=== PATIENT | female | born 1995 | race Caucasian/White ===

== ENCOUNTER 2017-10-19 21:05 | Observation (INO) ==
[2017-10-19 23:06] LABS: Basophils # 0.1 10*3/uL (0.0-0.2); Basophils % 0.5 % (0.0-0.8); Eosinophils # 0.2 10*3/uL (0.0-0.87); Eosinophils % 2.1 % (0.00-10.9); Hematocrit 40.3 VOL% (35.7-47.0); Hemoglobin 14.3 GM/DL (12.0-16.0); Immature Granulocytes % 0.3 %; Immature Granulocytes Absolute 0.03 #; Lymphocytes # 2.7 10*3/uL (1.4-4.0); Mean Corpuscular HGB Conc 35.5 GM/DL (32-36); Mean Corpuscular Hemoglobin 31 PG (27-34); Mean Corpuscular Volume 87.8 FL (87-102); Mean Platelet Volume 11.7 FL (9.6-12.0); Monocytes # 0.7 10*3/uL (0.11-0.8); Monocytes % 7.4 % (1.7-12.7); Neutrophils # 6.2 10*3/uL (1.4-7.4); Neutrophils % 62.7 % (38.7-73.9); Platelet Count 215 T/CUMM (130-400); Red Blood Count 4.59 MC/CUMM (3.8-5.5); Red Cell Distribution Width 12.4 % (9.3-17.3); White Blood Count 9.9 T/CUMM (4-12)
[2017-10-19 23:53] LABS: Alanine Aminotransferase 22 U/L (13-56); Albumin 3.6 G/DL (3.4-5.0); Alkaline Phosphatase 100 U/L (45-117); Aspartate Amino Transferase 14 U/L (0-37); Bilirubin,Total < 0.39 MG/DL (0.2-1.0); Blood Urea Nitrogen 9 MG/DL (7-18); Glucose 82 MG/DL (74-106); Osmolality,Calculated 276.4 MOS/KG (273-304); Sodium 140 MMOL/L (136-145); Total Protein 7.2 G/DL (6.4-8.3)
[2017-10-20 00:03] LABS: Troponin I Only < 0.015 NG/ML (0.00-0.045)
[2017-10-20] MEDS ORDERED: ZALEPLON 5 MG CAPSULE PO PRN (02:07)
[2017-10-20] MEDS ORDERED: ACETAMINOPHEN 325 MG TABLET PO PRN (02:07)
[2017-10-20] MEDS ORDERED: ONDANSETRON 4 MG/2 ML VIAL IV PRN (02:07)
[2017-10-20] MEDS: PANTOPRAZOLE 40 MG TABLET PO SCH (08:52)
[2017-10-20] MEDS ORDERED: CARVEDILOL 3.125 MG TABLET PO SCH (09:00)
[2017-10-20 10:28] LABS: Barbiturates Screen,Urine Negative (Negative); Benzodiazepines Screen,Urine Negative (Negative); Cannabinoid Screen,Urine Negative (Negative); Opiate Screen,Urine Negative (Negative); Phencyclidine Screen,Urine Negative (Negative)
[2017-10-21] MEDS ORDERED: DIAZEPAM 5 MG TABLET PO ONE (06:00)
[2017-10-21] MEDS ORDERED: TISSUE ADHESIVE 1 EACH APPLICATOR TOP ONE (06:09)
[2017-10-21] MEDS ORDERED: LIDOCAINE 1%/EPI INJ 20 ML VIAL ONE (06:09)
[2017-10-21] MEDS ORDERED: fentaNYL 100 MCG/2 ML VIAL ONE (06:53)
[2017-10-21] MEDS ORDERED: fentaNYL 100 MCG/2 ML VIAL IV ONE (07:18)
[2017-10-21] MEDS ORDERED: LIDOCAINE 1%/EPI INJ 20 ML VIAL INFILTRAT ONE (07:24)
[2017-10-21] MEDS: PANTOPRAZOLE 40 MG TABLET PO SCH (09:20)
[2017-10-21] MEDS ORDERED: diphenhydrAMINE 2% CREAM 28 GM TUBE TOP PRN (09:34)
[2017-10-21 12:00] VITALS: BP 95/63
== END 2017-10-21 13:05 | disposition home or self-care (01) ==
LOC: N.ED 21:05 → N.EDINP 21:05 → N.2W 10-20 08:44 → N.TELEN 10-20 14:44
PROVIDERS: ADMIT Internal Medicine; ATTEND Internal Medicine

== ENCOUNTER 2021-06-25 12:46 | Inpatient (IN) ==
[2021-06-25] MEDS ORDERED: SODIUM CHLORIDE 0.9% 1,000 ML IV STA (14:16)
[2021-06-25 15:00] LABS: Basophils % 0.3 % (0.0-0.8); Eosinophils % 0.2 % (0.00-10.9); Hematocrit 37.9 VOL% (35.7-47.0); Hemoglobin 12.7 GM/DL (12.0-16.0); Immature Granulocytes % 0.3 %; Immature Granulocytes Absolute 0.03 #; Lymphocytes # 2.3 10*3/uL (1.4-4.0); Lymphocytes % 25.4 % (21.3-54.2); Mean Corpuscular HGB Conc 33.5 GM/DL (32-36); Mean Corpuscular Volume 89.4 FL (87-102); Mean Platelet Volume 10.7 FL (9.6-12.0); Monocytes % 6.4 % (1.7-12.7); Neutrophils % 67.4 % (38.7-73.9); Platelet Count 205 T/CUMM (130-400); Red Blood Count 4.24 MC/CUMM (3.8-5.5); Red Cell Distribution Width 12.1 % (9.3-17.3); White Blood Count 9.2 T/CUMM (4-12)
[2021-06-25 15:35] LABS: Albumin 3.6 G/DL (3.4-5.0); Bilirubin,Total 0.4 MG/DL (0.20-1.00); Calcium 8.9 MG/DL (8.5-10.1); Osmolality,Calculated 268.8 MOS/KG (273-304); Potassium 3.5 MMOL/L (3.5-5.1); Total Protein 7.5 G/DL (6.4-8.2)
[2021-06-25] MEDS ORDERED: VANCOMYCIN INJ 1,500 MG in SODIUM CHLORIDE 0.9% 500 ML IV STA (16:50)
[2021-06-25] MEDS ORDERED: GLUCAGON 1 MG VIAL IM PRN (16:50)
[2021-06-25] MEDS ORDERED: ONDANSETRON 4 MG/2 ML VIAL IV PRN (16:50)
[2021-06-25] MEDS ORDERED: LACTATED RINGERS 2,000 ML IV ONE (16:54)
[2021-06-25] MEDS ORDERED: LACTATED RINGERS 1,000 ML IV ONE (16:55)
[2021-06-25] MEDS ORDERED: DEXTROSE 10% 25 GM/250 ML BAG IV PRN (17:07)
[2021-06-25 17:49] LABS: Thyroid Stimulating Hormone 0.37 uIU/ml (0.358-3.74)
[2021-06-25] MEDS: LACTATED RINGERS 1,000 ML IV SCH (18:00)
[2021-06-25] MEDS: MORPHINE 2 MG/1 ML SYRINGE IV PRN (19:05)
[2021-06-26] MEDS: LACTATED RINGERS 1,000 ML IV SCH ×2 (00:53→10:56)
[2021-06-26] MEDS: MORPHINE 2 MG/1 ML SYRINGE IV PRN ×2 (04:33→13:59)
[2021-06-26 05:12] LABS: Basophils % 0.4 % (0.0-0.8); Eosinophils # 0.1 10*3/uL (0.0-0.87); Hematocrit 31.8 VOL% (35.7-47.0); Hemoglobin 10.7 GM/DL (12.0-16.0); Immature Granulocytes % 0.4 %; Immature Granulocytes Absolute 0.03 #; Lymphocytes # 2.9 10*3/uL (1.4-4.0); Lymphocytes % 35.5 % (21.3-54.2); Mean Corpuscular HGB Conc 33.6 GM/DL (32-36); Mean Corpuscular Volume 90.9 FL (87-102); Mean Platelet Volume 11.3 FL (9.6-12.0); Neutrophils % 55.7 % (38.7-73.9); Platelet Count 193 T/CUMM (130-400); Red Cell Distribution Width 12.1 % (9.3-17.3); White Blood Count 8.3 T/CUMM (4-12)
[2021-06-26 05:42] LABS: Calcium 8.6 MG/DL (8.5-10.1); Osmolality,Calculated 272.5 MOS/KG (273-304); Potassium 3.9 MMOL/L (3.5-5.1)
[2021-06-26] MEDS ORDERED: VANCOMYCIN INJ 1,500 MG in SODIUM CHLORIDE 0.9% 500 ML IV SCH (06:00)
[2021-06-26] MEDS ORDERED: BUPIVACAINE 0.5% 50 ML VIAL ONE (11:13)
[2021-06-26] MEDS ORDERED: LIDOCAINE 1%/EPI INJ 20 ML VIAL ONE (11:13)
[2021-06-26] MEDS ORDERED: LIDOCAINE 2% 5 ML VIAL ONE (11:26)
[2021-06-26] MEDS ORDERED: MIDAZOLAM 2 MG/2 ML VIAL ONE (11:26)
[2021-06-26] MEDS ORDERED: fentaNYL 100 MCG/2 ML VIAL ONE (11:26)
[2021-06-26] MEDS ORDERED: propofoL 200 MG/20 ML VIAL IV ONE (11:26)
[2021-06-26] MEDS ORDERED: GLYCOPYRROLATE 0.4 MG/2 ML VIAL ONE (12:16)
[2021-06-26] MEDS ORDERED: SEVOFLURANE 1 UNIT/15 MINUTE INH ONE (12:16)
[2021-06-26] MEDS ORDERED: HYDROmorphone 2 MG/1 ML VIAL ONE (12:29)
[2021-06-26] MEDS: HYDROmorphone 2 MG/1 ML VIAL IV PRN ×2 (12:30→12:40)
[2021-06-26] MEDS ORDERED: ONDANSETRON 4 MG/2 ML VIAL IV PRN (12:41)
[2021-06-26] MEDS ORDERED: MEPERIDINE 25 MG/1 ML VIAL IV PRN (12:41)
[2021-06-26] MEDS ORDERED: MEPERIDINE 25 MG/1 ML VIAL ONE (12:45)
[2021-06-26 13:18] VITALS: BP 120/82
[2021-06-26] MEDS ORDERED: diphenhydrAMINE CAP 25 MG CAPSULE PO PRN (14:04)
[2021-06-26] MEDS ORDERED: HYDROmorphone 2 MG/1 ML VIAL IV PRN ×2 (14:47)
[2021-06-26] MEDS ORDERED: GABAPENTIN 300 MG CAPSULE PO SCH (15:00)
== END 2021-06-26 17:46 | disposition home or self-care (01) | DRG 385 ==
LOC: N.ED 12:46 → N.3E 16:32
PROVIDERS: ADMIT Internal Medicine; ATTEND Internal Medicine